=== PATIENT | female | born 1990 | race African-American/Black ===

== ENCOUNTER 2017-01-31 20:40 | Emergency (ER) | payer OTHER ==
[~2017-01-31] VITALS: Ht 175.3 cm; Wt 114.8 kg
[~2017-01-31 20:40] MED LIST: NOHOMEMEDICATIONS
[2017-01-31 21:14] LABS: ABSOLUTE NEUTROPHILS 5.8 thou/uL (1.4-8.2); BASOPHILS 0.7 % (0.0-2.0); EOSINOPHILS 1.7 % (0.0-3.0); HEMATOCRIT 34.8 % (37.0-47.0); HEMOGLOBIN 11.1 gm/dL (12.0-15.0); LYMPHOCYTES 28.4 % (24.0-44.0); MANUAL DIFF NO; MCH 25.5 pg (26.0-34.0); MCV 79.6 fL (80.0-100.0); PLATELET COUNT 288 thou/uL (150-400); POLYS 62.2 % (36.0-66.0); RBC 4.37 mil/uL (4.20-5.00); RDW 18.2 % (10.5-14.5); WBC 9.4 thou/uL (4.0-11.0)
[2017-01-31 21:22] LABS: CALCIUM 9.5 mg/dL (8.5-10.1); CREATININE 0.9 mg/dL (0.6-1.3); POTASSIUM 3.2 mmol/L (3.5-5.1)
[2017-01-31] MEDS ORDERED: PROMS25 WY RECTAL (21:25)
[2017-01-31] MEDS ORDERED: PHENERGAN 25 MG25 M1 PO (21:25)
[2017-01-31] MEDS ORDERED: POTASSIUM20 PO (21:50)
[2017-01-31 21:59] VITALS: BP 133/87
[2017-01-31 22:11] LABS: URINE BILIRUBIN 2+ (Negative); URINE BLOOD NEGATIVE (Negative); URINE COLOR YELLOW; URINE GLUCOSE-RANDOM* NEGATIVE (Negative); URINE KETONES 1+ (Negative); URINE NITRITE NEGATIVE (Negative); URINE PROTEIN (DIPSTICK) 2+ (Negative); URINE SPECIFIC GRAVITY 1.025 (1.003-1.035)
[2017-01-31 22:12] LABS: ICTOTEST (BILI CONFIRMATORY) Negative (Negative)
[2017-01-31 22:19] LABS: BACTERIA 1-9 Few /HPF (None Seen); CASTS None Seen /LPF (None Seen); CRYSTALS None Seen /LPF (None Seen); SQUAMOUS 4-10 Moderate /LPF (0-3); URINE RBC None Seen /HPF (0-2); URINE WBC 0-5 Rare /HPF (0-5)
== END 2017-01-31 22:11 | disposition home or self-care (01) ==
LOC: ER 20:40
PROVIDERS: Emergency Medicine
DX: O21.0 Mild hyperemesis gravidarum (principal); Z3A.08 8 weeks gestation of pregnancy; O26.891 Other specified pregnancy related conditions, first trimester; E87.6 Hypokalemia

== ENCOUNTER 2017-07-11 14:40 | Emergency (ER) | payer OTHER ==
[~2017-07-11] VITALS: Ht 175.3 cm; Wt 122.5 kg
[~2017-07-11 14:40] MED LIST changes: +PHENERGAN 25 MG25 M1 PO; +POTASSIUM20 PO; +PROMS25 WY RECTAL
[2017-07-11 14:51] VITALS: BP 133/86
[2017-07-11] MEDS ORDERED: TRINATE TABLET1 TAB PO (14:55)
== END 2017-07-11 15:45 | disposition home or self-care (01) ==
LOC: ER 14:40
DX: O26.893 Other specified pregnancy related conditions, third trimester (principal); L02.415 Cutaneous abscess of right lower limb; Z3A.31 31 weeks gestation of pregnancy

== ENCOUNTER 2019-08-19 22:04 | Emergency (ER) | payer OTHER ==
[~2019-08-19] VITALS: Ht 175.3 cm; Wt 117.9 kg
[~2019-08-19 22:04] MED LIST changes: +TRINATE TABLET1 TAB PO
[2019-08-19 22:06] VITALS: BP 132/90
[2019-08-19] MEDS ORDERED: BACTRIM DS TAB1 EACH PO (23:42)
== END 2019-08-20 00:01 | disposition home or self-care (01) ==
LOC: ER 22:04
DX: N76.4 Abscess of vulva (principal)